=== PATIENT | female | born 1945 | race Caucasian/White ===

== ENCOUNTER 2020-10-15 06:32 | Outpatient (REF) | payer MEDICARE, MEDICAID, SELFPAY | END 2020-10-15 06:33 | disposition home or self-care (01) | LOC: HO.LAB 06:32 | PROVIDERS: PCP Internal Medicine Geriatric Medicine; Visit Provider Internal Medicine | DX: Z20.822 Contact with and (suspected) exposure to COVID-19 (principal) | CPT/HCPCS: 36415; C9803; U0003 ==

== ENCOUNTER 2023-05-18 10:12 | Outpatient (REF) | payer MEDICARE, MEDICAID, SELFPAY ==
[2023-05-18 11:31] LABS: MANUAL DIFF FLAG NO
[2023-05-18 11:38] LABS: Basophils Percent Auto 0.6 % (0-2); Eosinophils Absolute Auto 0.4 X10*3/uL (0.0-0.4); Eosinophils Percent Auto 6.7 % (0-4); Hematocrit 39.6 % (37.0-47.0); Hemoglobin 13.2 g/dl (12.0-16.0); Imm Gran Abs Auto 0.02 X10*3/uL (0.00-0.03); Imm Gran Pct Auto 0.3 % (0.0-0.4); Lymphocytes Absolute Auto 2.1 X10*3/uL (1.2-4.9); Lymphocytes Percent Auto 32.4 % (20-40); Mean Corpuscular HGB Conc 33.3 g/dl (31.0-35.0); Mean Corpuscular Hemoglobin 30.1 pg (27.0-33.0); Mean Corpuscular Volume 90.2 fL (80.0-98.0); Mean Platelet Volume 9.6 fL (9.4-12.3); Monocytes Absolute Auto 0.5 X10*3/uL (0.1-1.2); Neutrophils Absolute Auto 3.5 x10*3/uL (2.0-8.3); Platelet Count 223 X10*3/uL (160-400); Red Blood Count 4.39 X10*6/uL (4.20-5.50); Red Cell Distribution Width 12.9 % (11.0-16.0); White Blood Count 6.6 X10*3/uL (4.8-10.8)
[2023-05-18 12:08] LABS: Alanine Aminotransferase 19 U/L (0-31); Albumin Level 4.1 g/dL (3.5-5.0); Alkaline Phosphatase 45 U/L (39-117); Anion Gap 10 (12-20); Aspartate Amino Transferase 25 U/L (5-31); Bilirubin Total 0.5 mg/dL (0.0-1.0); Blood Urea Nitrogen 15 mg/dL (9-16); Calcium 9.5 mg/dL (8.4-10.2); Carbon Dioxide 27 mmol/L (22-29); Chloride 108 mmol/L (96-108); Cholesterol 108 mg/dL (<200); Estimated Glomerular Filt Rate > 60; Glucose Random 83 mg/dL (60-115); HDL Cholesterol 38 mg/dL (>40); LDL Cholesterol Calculated 52 mg/dL (<100); Potassium 4.3 mmol/L (3.3-5.1); Sodium 141 mmol/L (135-145); Triglycerides 92 mg/dL (<150)
== END 2023-05-18 10:13 | disposition home or self-care (01) ==
LOC: HO.HHCL 10:12
PROVIDERS: Visit Provider Internal Medicine Geriatric Medicine
DX: I10 Essential (primary) hypertension (principal); F43.21 Adjustment disorder with depressed mood; I25.10 Atherosclerotic heart disease of native coronary artery without angina pectoris
CPT/HCPCS: 36415; 80053; 80061; 85025

== ENCOUNTER 2024-01-05 09:26 | Outpatient (REF) | payer MEDICARE, MEDICAID, SELFPAY ==
[2024-01-05 11:28] LABS: MANUAL DIFF FLAG NO
[2024-01-05 11:40] LABS: Basophils Absolute Auto 0.1 X10*3/uL (0.0-0.2); Basophils Percent Auto 0.7 % (0-2); Eosinophils Absolute Auto 0.3 X10*3/uL (0.0-0.4); Eosinophils Percent Auto 3.4 % (0-4); Hematocrit 40.2 % (37.0-47.0); Hemoglobin 13.4 g/dl (12.0-16.0); Imm Gran Abs Auto 0.02 X10*3/uL (0.00-0.03); Imm Gran Pct Auto 0.3 % (0.0-0.4); Lymphocytes Absolute Auto 2.2 X10*3/uL (1.2-4.9); Lymphocytes Percent Auto 30.2 % (20-40); Mean Corpuscular HGB Conc 33.3 g/dl (31.0-35.0); Mean Corpuscular Hemoglobin 30.8 pg (27.0-33.0); Mean Corpuscular Volume 92.4 fL (80.0-98.0); Mean Platelet Volume 10.1 fL (9.4-12.3); Monocytes Absolute Auto 0.5 X10*3/uL (0.1-1.2); Monocytes Percent Auto 7.2 % (2-11); Neutrophils Absolute Auto 4.3 x10*3/uL (2.0-8.3); Neutrophils Percent Auto 58.2 % (45-73); Platelet Count 238 X10*3/uL (160-400); Red Blood Count 4.35 X10*6/uL (4.20-5.50); Red Cell Distribution Width 12.5 % (11.0-16.0); White Blood Count 7.4 X10*3/uL (4.8-10.8)
[2024-01-05 12:01] LABS: Alanine Aminotransferase 19 U/L (0-31); Albumin Level 4.1 g/dL (3.5-5.0); Alkaline Phosphatase 54 U/L (39-117); Anion Gap 11 (12-20); Aspartate Amino Transferase 22 U/L (5-31); Bilirubin Total 0.4 mg/dL (0.0-1.0); Blood Urea Nitrogen 16 mg/dL (9-16); Calcium 9.8 mg/dL (8.4-10.2); Carbon Dioxide 28 mmol/L (22-29); Chloride 108 mmol/L (96-108); Cholesterol 129 mg/dL (<200); Estimated Glomerular Filt Rate > 60; Glucose Random 92 mg/dL (60-115); HDL Cholesterol 42 mg/dL (>40); LDL Cholesterol Calculated 70 mg/dL (<100); Potassium 4.3 mmol/L (3.3-5.1); Sodium 143 mmol/L (135-145); Total Protein 7.3 g/dL (6.5-8.0); Triglycerides 85 mg/dL (<150)
== END 2024-01-05 09:27 | disposition home or self-care (01) ==
LOC: HO.10HDL 09:26
PROVIDERS: Visit Provider Internal Medicine Geriatric Medicine
DX: I10 Essential (primary) hypertension (principal); F41.8 Other specified anxiety disorders; Z95.1 Presence of aortocoronary bypass graft
CPT/HCPCS: 36415; 80053; 80061; 85025

== ENCOUNTER 2024-12-19 09:58 | Outpatient (REF) | payer MEDICARE, MEDICAID, SELFPAY ==
[2024-12-19 11:12] LABS: MANUAL DIFF FLAG NO
[2024-12-19 11:16] LABS: Basophils Percent Auto 0.6 % (0-2); Eosinophils Absolute Auto 0.2 X10*3/uL (0.0-0.4); Eosinophils Percent Auto 3.5 % (0-4); Hemoglobin 13.6 g/dl (12.0-16.0); Imm Gran Abs Auto 0.01 X10*3/uL (0.00-0.03); Imm Gran Pct Auto 0.2 % (0.0-0.4); Lymphocytes Percent Auto 32.4 % (20-40); Mean Corpuscular HGB Conc 33.2 g/dl (31.0-35.0); Mean Corpuscular Hemoglobin 30.2 pg (27.0-33.0); Mean Corpuscular Volume 91.1 fL (80.0-98.0); Mean Platelet Volume 9.9 fL (9.4-12.3); Monocytes Absolute Auto 0.5 X10*3/uL (0.1-1.2); Monocytes Percent Auto 7.3 % (2-11); Neutrophils Absolute Auto 3.5 x10*3/uL (2.0-8.3); Platelet Count 247 X10*3/uL (160-400); Red Cell Distribution Width 12.7 % (11.0-16.0); White Blood Count 6.2 X10*3/uL (4.8-10.8)
[2024-12-19 11:41] LABS: Alanine Aminotransferase 29 U/L (0-31); Albumin Level 4.3 g/dL (3.5-5.0); Alkaline Phosphatase 59 U/L (39-117); Anion Gap 9 (12-20); Aspartate Amino Transferase 35 U/L (5-31); Bilirubin Total 0.6 mg/dL (0.0-1.0); Blood Urea Nitrogen 17 mg/dL (9-16); Calcium 9.4 mg/dL (8.4-10.2); Carbon Dioxide 28 mmol/L (22-29); Chloride 109 mmol/L (96-108); Cholesterol 125 mg/dL (<200); Estimated Glomerular Filt Rate > 60; Glucose Random 92 mg/dL (60-115); HDL Cholesterol 35 mg/dL (>40); LDL Cholesterol Calculated 72 mg/dL (<100); Potassium 4.2 mmol/L (3.3-5.1); Sodium 142 mmol/L (135-145); Total Protein 7.6 g/dL (6.5-8.0); Triglycerides 92 mg/dL (<150)
[2024-12-19 12:02] LABS: TSH reflex Free T4 1.27 uIU/mL (0.32-4.0)
[2024-12-19 12:03] LABS: Folate 9.5 ng/mL (> or = 4.0); Vitamin B12 388 pg/mL (200-900)
[2024-12-20 14:28] LABS: RPR Rapid Plasma Reagin NON-REACTIVE (NON-REACTIVE)
== END 2024-12-19 09:59 | disposition home or self-care (01) ==
LOC: HO.HHCL 09:58
PROVIDERS: Visit Provider Internal Medicine Geriatric Medicine
DX: I25.10 Atherosclerotic heart disease of native coronary artery without angina pectoris (principal); Z11.3 Encounter for screening for infections with a predominantly sexual mode of transmission; R41.3 Other amnesia
CPT/HCPCS: 36415; 80053; 80061; 82607; 82746; 84443; 85025; 86592

== ENCOUNTER 2025-01-30 09:27 | Outpatient (REF) | payer MEDICARE, MEDICAID, SELFPAY ==
--- NOTE | ~2025-01-30 | CT_ITS ---
EXAMINATION: CT HEAD WITHOUT IV CONTRAST HISTORY: Memory problems. TECHNIQUE: Unenhanced helical CT of the head was performed per standard departmental protocol. Coronal and sagittal reformats of the head were also evaluated. One or more of the following techniques was used for dose reduction: Automated exposure control, adjustment of the mA and/or kV according to patient size, use of iterative reconstruction technique. DLP: 606 mGy-cm COMPARISON: There are no prior studies for comparison. FINDINGS: BRAIN: The brain parenchyma is unremarkable. There is normal wilkes/white differentiation. The ventricular system is normal in size and configuration. There is no mass effect or midline shift. No intra- or extra-axial fluid collections are identified. SINUSES: The visualized paranasal sinuses are clear. The mastoid air cells and middle ear cavities are well pneumatized. ORBITS: The visualized orbits are unremarkable. BONES/SOFT TISSUES: The extracranial soft tissues are unremarkable. The calvarium is intact. No suspicious lytic or sclerotic lesions. CT/CT head/brain wo IV con IMPRESSION: Unremarkable unenhanced head CT. Electronically signed by: Isauro Maier MD 01/30/2025 10:19 AM EDT
--- OUTSIDE RECORDS SUMMARY | 2025-01-30 10:10 | XMS_ITS | Encounter Summary ---
Author Organization [employer] Address [address] [place] [address] 7t [place] [address] Care Team Providers Care Senior Data Modeler Name Role Phone Name, Deshawn QUINTANA Primary Care Provider [phone] Reason for Visit * Reason Comments Med Refill Encounter Details Date Type Department Care Team (Late st Contact Info) Description 06/21/2023 Refill [facility] MED[facility]INE [address] [place] [phone] Sofia Carreon FNP [address] [place] [address] Dept [place] [address] Essential hypertension; CAD in [place] artery Social History Tobacco Use Types Packs/Day Years Used Date Smoking Tobacco: Never Smokeless Tobacco: Never Alcohol Use Standard Drinks/Week Comments Never 0 (1 standard drink = 0.6 oz pur e alcohol) Depression Answer Date Recorded Patient Health Questionnaire-9 Score 0 10/22/2022 Depression Answer Date Recorded Patient Health Questionnaire-2 Score 0 10/22/2022 Comments Unknown Sex and Gender Information Value Date Recorded Sex Assigned at Female 07/26/2022 10:31 AM EDT Legal Sex Female 10:31 AM EDT Gender Identity Female 07/26/2022 10:31 AM EDT Sexual Orientation Straight 07/26/2022 10 :31 AM EDT documented as of this encounter Plan of Treatment Upcoming Encounters Date Type Department Care Team (Late st Contact Info) Description 03/12/2025 10:45 AM EDT Office Visit [facility] [address] [place] [address] [phone] Name, MD Deshawn [address] [place] [phone] documented as of this encounter Visit Diagnoses Diagnosis Essential hypertension Unspecified essential hypertension CAD in [place] artery documented in this encounter Additional Health Concerns Assessment Noted Time PHQ-9 Depression Total Score: 0 10/22/19 23 9:56 AM EST documented as of this encounter Care Teams Senior Data Modeler Relationship Specialty Start Date End Date Name, MD Deshawn [address] [place] [address] PCP - General Family Medicine 07/07/18 documented as of this encounter
--- OUTSIDE RECORDS SUMMARY | 2025-01-30 10:10 | XMS_ITS | Encounter Summary ---
Author Organization [employer] Address [address] 7[address] [place] [address] Care Team Providers Care Patent Attorney Name Role Phone Name, Deshawn QUINTANA Primary Care Provider [phone] Encounter Details Date Type Department Care Team (Latest Contact Info) Description 01/22/2019 Abstract [facility] CONVERSIONS Dental, Provider, DDS Social History Tobacco Use Types Packs/Day Years Used Date Smoking Tobacco: Never Assessed Comments Unknown Sex and Gender Information Value [...] Description 03/12/2025 10:45 AM EDT Office Visit [facility] MEDICINE [address] [place] [address] Name, MD Deshawn [address] [place] [address] documented as of this encounter Visit Diagnoses Not on filedocumented in this encounter Care Teams Patent Attorney Relationship Specialty Start Date End Date Name, MD Deshawn [address] [place] [address] PCP - General Family Medicine 07/07/18 documented as of this encounter
--- OUTSIDE RECORDS SUMMARY | 2025-01-30 10:10 | XMS_ITS | Encounter Summary ---
Author Organization [employer] Address [address] [facility] [address] [address] [place] [address] Care Team Providers Care Engine Watchman Name Role Phone Name, Deshawn QUINTANA Primary Care Provider [phone] Reason for Visit * Reason Comments Med Refill Encounter Details Date Type Department Care Team (Late st Contact Info) Description 06/09/2024 Refill [facility] [address] [place], [place] [phone] Name, MD Deshawn [address] [place] [address] Essential hypertension; CAD in [place] artery; Hypertension, unspecified type Social History Tobacco Use Types Packs/Day Years Used Date Smoking Tobacco: Never Passive Smoke Exposure: Never Smokeless Tobacco: Never Alcohol Use Standard Drinks/Week Comments Never 0 (1 standard drink = 0.6 oz pur e alcohol) Alcohol Answer Date Recorded Frequency of Alcohol Consumption Not on file 04/03/2024 Average Number of Drinks Not on file 024 Frequency of Binge Drinking Not on file 05/2024 Score 0 04/03/2024 Depression Answer Date Recorded Patient Health Questionnaire-9 Score 1 12/20/2023 Patient Health Questionnaire-9 Score 1 12/20/2023 Last PHQ-9: Questionnaire Data Not on file 0 12/20/2023 Housing Stability Answer Date Recorded What is your housing situation today? I have emilee arenas 12/20/[address] you li ve. Do you have problems with any of the following? None of the above 12/20/2023 Food Insecurity Answer Date Recorded Within the past 12 months, y ou worried that your food would run out before you got money to buy more: Never True 12/20/2023 Within the past 12 months,th e food you bought just didn't last and you didn't have enough money to get more: Never True Transportation Answer Date Recorded In the past 12 months, has l ack of transportation kept you from medical appts, meetings, work or from getting things needed for daily living? No 12/20/2023 Utilities Answer Date Recorded In the past 12 months, has t he electric, gas, oil or water company threatened to shut off services in your home? No 12/20/2023 Depression Answer Date Recorded Patient Health Questionnaire-2 Score 1 12/20/2023 Comments Unknown Sex and Gender Information Value [...] Description 03/12/2025 10:45 AM EDT Office Visit [facility] MEDICINE [address] [place] [phone] NameDeshawn MD [address] [place] [address] documented as of this encounter Visit Diagnoses Diagnosis Essential hypertension Unspecified essential hypertension CAD in [place] artery Hypertension, unspecified type documented in this encounter Additional Health Concerns Assessment Noted Time PHQ-9 Depression Total Score: 1 12/20/19 24 10:31 AM EDT documented as of this encounter Care Teams Engine Watchman Relationship Specialty Start Date End Date Name, MD Deshawn [address] [place] [phone] PCP - General Family Medicine 07/07/18 documented as of this encounter
--- OUTSIDE RECORDS SUMMARY | 2025-01-30 10:10 | XMS_ITS | Encounter Summary ---
Author Organization [employer] Address [address] [place] [address] 7t [place] [address] Care Team Providers Care Groover And Turner Name Role Phone Name, Deshawn QUINTANA Primary Care Provider [phone] Reason for Visit * Reason Comments Med Refill Encounter Details Date Type Department Care Team (Late st Contact Info) Description 03/01/2023 Refill [facility] MEDICINE [address] [place] [phone] Sofia Carreon FNP [address] [place] [address] Dept [place] [address] Social History Tobacco Use Types Packs/Day Years [...] Description 03/12/2025 10:45 AM EDT Office Visit [facility] MEDICINE [address] [place] [address] [phone] Name, MD Deshawn [address] [place] [phone] documented as of this encounter Visit Diagnoses Not on filedocumented in this encounter Additional Health Concerns Assessment Noted Time PHQ-9 Depression Total Score: 0 10/22/19 23 9:56 AM EST documented as of this encounter Care Teams Groover And Turner Relationship Specialty Start Date End Date Name, MD Deshawn [address] [place] [address] PCP - General Family Medicine 07/07/18 documented as of this encounter
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
--- OUTSIDE RECORDS SUMMARY | 2025-01-30 10:10 | XMS_ITS | Encounter Summary ---
Author Organization [employer] Address [address] [place] [address] Care Team Providers Care [employer] Consultant Name Role Phone Name, Deshawn QUINTANA Primary Care Provider [phone] Reason for Visit * Reason Onset Date Comments Med Refill 05/02/2023 Encounter Details Date Type Department Care Team (Late st Contact Info) Description 05/02/2023 Telephone [facility] [address], [place] [phone] Name, MD Deshawn [address] [place] [address] Med Refill Social History Tobacco Use Types Packs/Day Years [...] AM EDT documented as of this encounter Miscellaneous Notes * Telephone Encounter - Mary Dumont LPN - 05/02/2023 11:05 AM EDT Medication was sent to [facility] #[id number] on 04/28/23 #90. * Telephone Encounter - Maricruz Ramirez - 05/02/2023 10:59 AM EDT Tc from pt son requesting medication refill on aspirin (Aspirin Low Dose) 81 MG chewable tablet to be sent to [facility]/pharmacy #[id number] - [place], [place] - [address] documented in this encounter Plan of Treatment Upcoming Encounters Date Type Department Care Team (Late st Contact Info) Description 03/12/2025 10:45 AM EDT Office Visit [facility] [address] [place] [address] Name, MD Deshawn [address] [place] [phone] documented as of this encounter Visit Diagnoses Not on filedocumented in this encounter Additional Health Concerns Assessment Noted Time PHQ-9 Depression Total Score: 0 10/22/19 23 9:56 AM EST documented as of this encounter Care Teams [employer] Consultant Relationship Specialty Start Date End Date Name, MD Deshawn [address] [place] [phone] PCP - General Family Medicine 07/07/18 documented as of this encounter
--- OUTSIDE RECORDS SUMMARY | 2025-01-30 10:10 | XMS_ITS | Encounter Summary ---
Author Organization [employer] Address [address] [place] [address] [place] [address] Care Team Providers Care Meter Maintenance Person Name Role Phone Name, Deshawn QUINTANA Primary Care Provider [phone] Reason for Visit * Reason Comments Med Refill Encounter Details Date Type Department Care Team (Late st Contact Info) Description 09/03/2022 Refill [facility] [address] [place] [phone] Sofia Carreon FNP [address] [place] [address] Dept [place] [address] Social History Tobacco Use Types Packs/Day Years [...] EDT Office Visit [facility] [address] [place] [phone] NameDeshawn MD [address] [place] [phone] documented as of this encounter Visit Diagnoses Not on filedocumented in this encounter Care Teams Meter Maintenance Person Relationship Specialty Start Date End Date Deshawn Al MD [address] [place] [phone] PCP - General Family Medicine 07/07/18 documented as of this encounter
--- OUTSIDE RECORDS SUMMARY | 2025-01-30 10:10 | XMS_ITS | Clinical Summary ---
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 Name Role Phone Unavailable Primary Care Provider Unavailabl e Source Comments PLEASE NOTE, if this patient is a minor, it may be UNLAWFUL to discuss sensitive information that is contained in these records (such as FAMILY PLANNING, MENTAL HEALTH or SUBSTANCE ABUSE) with the minor patient's parent or other person without the patient's specific authorization.[facility] Allergies No known active allergies Medications No known medications Active Problems No known active problems Encounters Date Type Department Care Team Description 12/27/2024 9:40 AM EDT Office Visit [address] [phone] Jim Sims RHD Encounter for dental examination (Primary Dx); Retained tooth root; Caries; Defective dental mosque from Last 3 Months Social History Tobacco Use Types Packs/Day Years Used Date Smoking Tobacco: Never Smokeless Tobacco: Never Tobacco Cessation:Counseling Given: Not Answered Comments Unknown Sex and Gender Information Value Date Recorded Sex Assigned at Not on file Legal Sex Female 6:57 AM PST Gender Identity Not on file Sexual Orientation Not on file Last Filed Vital Signs Vital Sign Reading Time Taken Comments Blood Pressure 124/69 12/27/2024 9:38 AM EDT Pulse 69 12/27/2024 9:38 AM EDT Temperature - - Respiratory Rate - - Oxygen Saturation - - Inhaled Oxygen Concentration - - Weight - - Height - - Body Mass Index - - Plan of Treatment Upcoming Encounters Date Type Department Care Team (Late st Contact Info) Description 02/28/2025 9:40 AM EDT Office Visit [address] [phone] Sancho Kaiser DDS [address] [place], [place] [phone] Health Maintenance Due Date Last Done Comments Dental Perio Charting 1943 Advanced Care Planning 1945 Imm-Zoster, Recombinant (1 of 2) 1993 Bone Density Screening 2008 Falls Prevention 2008 Alcohol and Drug Screen 09/26/2024 Depression Annual Screen 09/26/2024 [id number] ( season) 2025 024 Hypertension Screening (#1) 12/27/2025 Tobacco Screening 12/27/2025 12/27/2024 Dental BW 12/29/2025 12/27/2024 Dental Examination 12/29/2025 12/27/2024 Dental Prophy 12/29/2025 12/27/2024 Dental FMX/Pano 12/29/2029 12/27/2024 Imm-DTaP/Tdap/Td (3 - Td or Tdap) 03/10/2032 022, 12/15/2016 Imm-Pneumococcal 65+ Completed 07/31/2021, 12/15/2016, 08/05/2014 Imm-Influenza Completed 07/18/2024, 07/27, 06/28/2018, Additional history exists Procedures Procedure Name Priority Date/Time Associated Diagnosis Comments 23 INTRAORAL - PERIAPICAL EACH ADD RADIOGRAPH IMAGE Routine 12/27/2024 9:40 AM EDT Retained tooth root Caries Defective dental mosque Encounter for dental examination 27 INTRAORAL - PERIAPICAL EACH ADD RADIOGRAPH IMAGE Routine 12/27/2024 9:40 AM EDT Retained tooth root Caries Defective dental mosque Encounter for dental examination 11 INTRAORAL - PERIAPICAL EACH ADD RADIOGRAPH IMAGE Routine 12/27/2024 9:40 AM EDT Retained tooth root Caries Defective dental mosque Encounter for dental examination 7 INTRAORAL - PERIAPICAL FIRST RADIOGRAPHIC IMAGE Routine 12/27/2024 9:40 AM EDT Retained tooth root Caries Defective dental mosque Encounter for dental examination DENTAL CASE MANAGEMENT - MOTIVATIONAL INTV Routine 12/27/2024 9:40 AM EDT Caries Encounter for dental examination PROPHYLAXIS - ADULT Routine 12/27/2024 9 :40 AM EDT Caries Encounter for dental examination PANORAMIC RADIOGRAPHIC IMAGE Routine 12/27/2024 9:40 AM EDT Retained tooth root Caries Defective dental mosque Encounter for dental examination BITEWINGS - TWO RADIOGRAPHIC IMAGES Routine 12/27/2024 9:40 AM EDT Retained tooth root Caries Defective dental mosque Encounter for dental examination COMP ORAL EVALUATION - NEW/ESTABLISHED PATIENT Routine 12/27/2024 9:40 AM EDT Caries Encounter for dental examination CARIES RISK ASSESSMENT & DOC FINDING HIGH RISK Routine 12/27/2024 9:40 AM EDT Caries Encounter for dental examination NUTRITIONAL COUNSELING CONTROL OF DENTAL DISEASE Routine 12/27/2024 9:40 AM EDT Caries Encounter for dental examination ORAL HYGIENE INSTRUCTIONS Routine 12/27/2024 9:40 AM EDT Caries Encounter for dental examination ORAL CANCER SCREENING Routine 12/27/2024 9:40 AM EDT Caries Encounter for dental examination CASE PRESENTATION SUBS DTL & EXTENSIVE TX PLN Routine 12/27/2024 9:40 AM EDT Encounter for dental examination 7 DF COMPOSITE - WISDOM (NON BILLABLE) Routine 12/27/2024 12:00 AM EDT 27 D COMPOSITE - WISDOM (NON BILLABLE) Routine 12/27/2024 12:00 AM EDT 13 CROWN - PORCELAIN/CERAMIC Routine 12/27/2024 12:00 AM EDT 10 ROOT CANAL - WISDOM (NO BILLABLE) Routine 12/27/2024 12:00 AM EDT 11 ROOT CANAL - WISDOM (NO BILLABLE) Routine 12/27/2024 12:00 AM EDT 3 MOB AMALGAM - WISDOM (NON BILLABLE) Routine 12/27/2024 12:00 AM EDT 5 CROWN - PORCELAIN/CERAMIC Routine 12/27/2024 12:00 AM EDT 11 CROWN - PORCELAIN/CERAMIC Routine 12/27/2024 12:00 AM EDT 10 CROWN - PORCELAIN/CERAMIC Routine 12/27/2024 12:00 AM EDT 9 CROWN - PORCELAIN/CERAMIC Routine 12/27/2024 12:00 AM EDT 8 CROWN - PORCELAIN/CERAMIC Routine 12/27/2024 12:00 AM EDT from Last 3 Months [facility]
== END 2025-01-30 09:28 | disposition home or self-care (01) ==
LOC: HO.CT 09:27
PROVIDERS: PCP Internal Medicine Geriatric Medicine; Visit Provider Internal Medicine Geriatric Medicine
DX: R41.3 Other amnesia (principal)
CPT/HCPCS: 70450

== ENCOUNTER → 2025-01-30 09:29 | Outpatient (BNV) | payer MEDICARE, MEDICAID, SELFPAY | PROVIDERS: PCP Internal Medicine Geriatric Medicine; Visit Provider Radiology Diagnostic Radiology | DX: R41.3 Other amnesia (principal) | CPT/HCPCS: 70450 ==